=== PATIENT | female | born 1985 | race Caucasian/White ===

== ENCOUNTER 2018-10-02 00:36 | Emergency (ER) | payer SELFPAY ==
[2018-10-02 00:37] VITALS: BMI 25.0
[2018-10-02] MEDS ORDERED: Lidocaine 1% Inj (20ml) ONE (14:43)
== END 2018-10-02 00:47 | disposition left against medical advice (07) ==
LOC: ED 00:36
DX: Z02.89 Encounter for other administrative examinations (principal); K08.89 Other specified disorders of teeth and supporting structures